=== PATIENT | male | born 1990 ===

== ENCOUNTER 2016-11-03 12:08 | Inpatient (IN) | payer MEDICAID ==
[2016-11-03 12:11] VITALS: BMI 38.4
--- NOTE | 2016-11-03 12:29 | ED PDOC ---
Arrival/HPI - General Chief Complaint: Medical Clearance Time Seen by Provider: 11/03/16 12:19 - History of Present Illness Narrative History of Present Illness (Text): 11/03/16 12:29 25yo male with suicidal ideations and worsening depression. Denies homicidal ideations. denies relieving or exacerbating factors. No other complaints. Sent from [facility] for admission to behavioral health floor. Past Medical History - Provider Review Nursing Documentation Reviewed: Yes - Pulmonary Hx Asthma: Yes - Psychiatric Hx Psychophysiologic Disorder: Yes Hx Depression: Yes Hx Substance Use: No - Anesthesia Hx Anesthesia: No Hx Anesthesia Reactions: No Family/Social History Family/Social History: Unknown Family HX Smoking Status: Never Smoked Hx Alcohol Use: No Hx Substance Use: No Allergies/Home Meds Allergies/Adverse Reactions: Allergies seafood Allergy (Uncoded 11/03/16 12:10) ANAPHYLAXIS Home Medications: Home Meds Medication Instructions Recorded Confirmed No Known Home Med 11/03/16 11/03/16 Physical Exam - Physical Exam Narrative Physical Exam (Text): 11/03/16 12:30 - Review of Systems Constitutional: Normal. absent: Fatigue, Weight Change, Fevers Eyes: Normal ENT: denies sore throat, denies tristhmus Respiratory: Normal. absent: SOB, Cough, Sputum Cardiovascular: absent: Chest Pain, Palpitations, Syncope Gastrointestinal: Normal. absent: Abdominal Pain, Diarrhea, Nausea, Vomiting Genitourinary: Normal. absent: Dysuria, Frequency, Hematuria Musculoskeletal: Normal. absent: Arthralgias, Back Pain, Neck Pain Skin: no rashes, no erythema Neurological: absent: Focal Weakness Endocrine: Normal Hemo/Lymphatic: Normal Psychiatric: suicidal ideations, depression. No homicidal ideations Physical exam Patient appears age appropriate in no distress, speaking full sentences without difficulty - Systems Exam Head: Present: Atraumatic, Normocephalic Pupils: Present: PERRL Extroacular Muscles: Present: EOMI Conjunctiva: Present: Normal Mouth: Present: Moist Mucous Membranes Neck: Present: Normal Range of Motion. No: MIDLINE TENDERNESS, Paraspinal Tenderness Respiratory/Chest: Present: Clear to Auscultation, Good Air Exchange. No: Respiratory Distress, Accessory Muscle Use, Tachypneic Cardiovascular: Present: Regular Rate and Rhythm, Normal S1, S2, Peripheal Pulses Present. No: Murmurs Abdomen: Present: Normal Bowel Sounds. No: Tenderness, Distention, Peritoneal Signs, Rebound, Guarding Back: Present: Normal Inspection. No: Midline Tenderness, Paraspinal Tenderness Upper Extremity: Present: Normal Inspection. No: Cyanosis, Edema Lower Extremity: Present: Normal Inspection. No: Edema Neurological: Present: GCS=15, Speech Normal, cranial nerves II through XII fully intact with no cerebellar abnormality, neurosensory fully intact. No focal neurological deficits. Skin: Present: Warm, Dry, Normal Color. No: Rashes Lymphatic: Present: OX3, NI, NC Psychiatric: Present: Alert, Oriented x 3, Normal Insight, Normal Concentration Disposition/Present on Arrival - Present on Arrival Any Indicators Present on Arrival: No History of DVT/PE: No History of Uncontrolled Diabetes: No Urinary Catheter: No History of Decub. Ulcer: No History Surgical Site Infection Following: None - Disposition Have Diagnosis and Disposition been Completed?: Yes Diagnosis: Suicidal ideation Disposition: HOSPITALIZED Disposition Time: 12:31 Patient Plan: Admission Condition: STABLE
[2016-11-03 14:33] VITALS: O2SAT 100
[2016-11-03] MEDS ORDERED: Alum-Mag Hydrox-Simethicone Susp (30 mL) PO PRN (16:00)
[2016-11-03] MEDS ORDERED: Magnesium Hydroxide Susp 30 ml UD PO PRN (16:00)
[2016-11-03] MEDS ORDERED: DiphenhydrAMINE 50 mg/ml Inj IM PRN (16:03)
[2016-11-04 09:29] VITALS: RESP 16; TEMP 98.7
--- NOTE | 2016-11-04 14:44 | CON ---
DATE: 11/04/2016 I saw the patient on the psychiatric floor. He tells me he was just in [facility] and looks forward to going to [place] w/ family when he can be discharged from here. . He tells me he had some suicidal thoughts and feeling depressed. Before he did anything bad and anything would happen, he came to the Emergency Room. He has not been taking his medications and he feels like he needs to get back on the medications again. He had first gone to [facility] and they sent him over here. He has a history of asthma, but no breathing issues; depression. SOCIAL HISTORY: He never smoked, no alcohol, no drugs. FAMILY HISTORY: He tells me his family has no medical history that he knows of. ALLERGIES: HE HAS AN ALLERGY TO SEAFOOD but not to medication. MEDICATIONS: He does not remember the medications he was taking, and he is not taking any medications now. REVIEW OF SYSTEMS: He has no acute vision changes or hearing changes, no sore throat, no headache, no dizziness, no chest pain or shortness of breath, no abdominal pain. He is urinating well. Legs are okay. Arms are okay. Skin is intact. He tells me no issues with his skin, no rashes. PHYSICAL EXAMINATION: VITAL SIGNS: He has a 98 temp, 64 pulse, 119/87 blood pressure (maybe a little borderline), 17 respiratory rate, 100% O2 sat on room air. HEENT: Head is atraumatic, normocephalic. Extraocular muscles are intact. Pupils equal, reactive to light and accommodation. Throat moist, no erythema. NECK: Supple, no JVD. HEART: Regular rate. LUNGS: Clear to auscultation. ABDOMEN: Soft, nontender, positive bowel sounds. No guarding, no rebound, no CVA tenderness. EXTREMITIES: Have no edema. NEUROLOGIC: Cranial nerves II-XII are grossly intact. He is alert and oriented x 3. He could smile. He could stick his tongue out midline. He could feel the tissue on both sides of the face the same way. He could can follow my finger in an H pattern with his vision in his eyes. He could put his arms over his head. He is grossly neurologically intact at this time. He is here for suicidal thoughts, depression, off his medications. He came feeling that he needs to be back on his medication before he does something poorly. Will check his blood pressure and make sure that stays down. No asthma symptoms at this time, but he has an asthma history. Will check his labs tomorrow. He did have a consult with psychiatry. He is on Ativan, Benadryl, Desyrel, Haldol, milk of magnesia, Maalox, Prozac, Tylenol and Vistaril. Will see how he does with his blood test. Labs are pending. Juancarlos Tinsley DO cc: [id number] TT: 11/04/2016 14:44:16 Confirmation # [id number] Dictation # [id number] mn MTDD
--- NOTE | 2016-11-04 15:03 | PCM.PSYCH ---
Initial Psychiatric Evaluation - Initial Psychiatric Evaluation Type of Admission: Voluntary Legal Status: Capacity (patient has capacity to sign consent for treatment) Chief Complaint (in patient's own words): "my mood was up and down, was feeling hopeless, but not feel better, my aunt invited me to leave with her in [place]" Patient's Reaction to Hospitalization: atient was transferred from the [facility] for psychiatric admission patient verbalized depressive symptoms, irritability, inability to function, difficulty to concentrate and stay focused. History of Present Illness and Precipitating Events: shortly patient is 25 years old male, self reported history of ADHD, dependent personality disorder, rule out borderline personality disorder, as well as self reported history of bipolar disorder, at least 5 hospitalizations in to the psychiatric inpatient unit mostly for disruptive behavior most recent was in February 2014 first was in 2007, patient has history of incarcerations most recent was from October 29 to June 2016 for violation of November but probation patient was transferred from [facility] for evaluation and stabilization of depressive symptoms irritability as well as medication initiation and titration. Patient was seen today at the morning time at the treatment team meeting with the medical students. Patient presented to be alert and oriented corporative well related to this television script writer, fare personal hygiene good ADLs. Patient reported that he was [facility] from [facility] in June 2016 and for past 3 months he is trying to adjust in society. 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 Patient at the same time was feeling hopeless and helpless, patient reported to feel irritable and angry, the same time denied any aggressive feelings. Patient reported being depressed hopeless patient denied thoughts of harming himself or others denied intent or plan. Patient denied hearing voices denied seeing things denied paranoid ideation patient does not appear to be psychotic Patient reported history of ADHD hyperactivity team as well as patient was attending special at class for disruptive behavior but not for low IQ. Patient still has difficulties to concentration difficulties to stay focused patient obviously has overproductive patient and difficult to to stay still. Patient denied using any drugs denied using alcohol denied smoking at the same time patient reported that he smoked weed couple weeks ago. patient has history of incarceration patient has flashbacks and nightmares about what was going on with other people in [facility], patient has flashbacks and nightmares and reliving of the situation most recent was in August when patient had vivid dreams and had nightmares. Past psychiatric history patient has multiple admissions into the psychiatric inpatient units first was in 2007 at the age of 16 patient overdose on 2 pills of Tylenol and was admitted into the psychiatric inpatient unit most recent was in February 2014 for disruptive behavior. Patient was officially diagnosed with attention deficit hyperactivity disorder was on Vyvanse was on arm Strattera also Concerta patient reported when she was on Vyvanse she was able to stay focused as well as concentrate better. patient has history of multiple arrests all together patient served 6.5 years in [facility] most recent was from October 2014 to June 2016 for violation of parole patient also was arrested from March 2009 to 2012 for robbery. pt is not on probation now. pt was on multiple psychotropic meds including wellbutrin and risperdal, pt gain a lot of weight on Risperdal and dos not want to be on it. patient was educated about Wellbutrin, as well as Geodon. Patient gave permission to speak to his aunt who invited patient to stay with her in [place] [phone] her name is Jorge, Jorge said that patient was doing very well she was making good choices, at the same time patient was not using drugs and confirmed the fact that patient will be living with her. This television script writer educated on and about treatment plan. Aunt verbalized understanding. Patient wanted to be discharged today, but aunt wants pt to be on medications as well as f/u appointment at [place]. pt was in agreement with that plan. Vital Signs Temp Pulse Resp BP Pulse Ox 11/04/16 07:00 98.7 F 62 16 161/90 H 11/03/16 14:10 64 17 119/87 100 11/03/16 12:24 98.0 F 59 L 16 117/88 98 Current Medications: Active Medications Generic Name Dose Route Start Last Admin Trade Name Freq PRN Reason Stop Dose Admin Acetaminophen 650 mg 11/03/16 16:00 Tylenol 325mg Tab PO Q4 PRN Pain, Mild (1-3) Al Hydrox/Mg Hydrox/Simethicone 30 ml 11/03/16 16:00 Maalox Plus 30 Ml PO DAILY PRN Upset Stomach Bupropion HCl 100 mg 11/04/16 16:00 Wellbutrin PO BID [place] Diphenhydramine HCl 50 mg 11/03/16 16:03 Benadryl PO Q6H PRN Agitation Diphenhydramine HCl 50 mg 11/03/16 16:03 Benadryl IM Q6H PRN Agitation Haloperidol 5 mg 11/03/16 16:03 Haldol PO Q6H PRN Agitation Protocol Haloperidol Lactate 5 mg 11/03/16 16:03 Haldol IM Q6H PRN Agitation Protocol Hydroxyzine Pamoate 50 mg 11/03/16 16:01 Vistaril PO Q8 PRN Anxiety Protocol Lorazepam 2 mg 11/03/16 16:03 Ativan PO Q6H PRN Agitation Protocol Lorazepam 2 mg 11/03/16 16:03 Ativan IM Q6H PRN Anxiety Protocol Magnesium Hydroxide 30 ml 11/03/16 16:00 Milk Of Magnesia PO DAILY PRN Constipation Trazodone HCl 50 mg 11/03/16 22:00 11/03/16 23:06 Desyrel PO 50 mg HS [place] Administration Ziprasidone 20 mg 11/04/16 16:00 Geodon Cap PO BID [place] Protocol Past Psychiatric History - Past Psychiatric History Previous Treatment History: Inpatient Prior Professional Help: See HPI Prior Psychiatric Treatment: see HPI At what hospital: see HPI Duration: see HPI Nature of Treatment: see HPI Explanation of prior treatment: see HPI History of Abuse: none History of ETOH/Drug Use: denied History of Family Illness: denied Pertinent Medical Hx (Current Medical&Sleep Prob, Allergies): Allergies Allergy/AdvReac Type Severity Reaction Status Date / Time Shellfish Allergy SHORTNESS Uncoded 11/03/16 15:59 OF BREATH No Known Home Med 11/03/16 Review of Systems - Review of Systems Systems not reviewed;Unavailable: Acuity of Condition - EENT Eyes: As Per HPI Ears: As Per HPI Nose/Mouth/Throat: As Per HPI - Cardiovascular Cardiovascular: As Per HPI - Respiratory Respiratory: As Per HPI - Gastrointestinal Gastrointestinal: As Per HPI - Genitourinary Genitourinary: As Per HPI - Reproductive: Male Reproductive:Male: As Per HPI - Musculoskeletal Musculoskeletal: As Par HPI - Integumentary Integumentary: As Per HPI - Neurological Neurological: As Per HPI - Psychiatric Psychiatric: As Per HPI - Endocrine Endocrine: As Per HPI - Hematologic/Lymphatic Hematologic: As Per HPI Mental Status Examination - Personal Presentation Personal Presentation: Looks stated age - Affect Affect: Constricted - Motor Activity Motor Activity: Calm - Reliability in Providing Information Reliability in Providing Information: Fair - Speech Speech: Organized, Other (at the same time has difficulties to concentrate) - Mood Mood: Depressed - Formal Thought Process Formal Thought Process: No Impairment - Obsessions/Compulsions Obsessions: None Compulsions: None - Cognitive Functions Orientation: Person, Place, Situation, Time Sensorium: Alert Attention/Concentration: Easily distracted Abstract Thinking: Parker Estimate of Intelligence: Average - Risk Risk: Self-mutilation, Diminished functioning - Strength & Assets Inventory Strength & Assets Inventory: Intelligence, Family support, Education, Skills, Cooperative - Limitations Limitations: Other (mental illness, h/o noncompliance with meds) DSM 5 DX - DSM 5 DSM 5 Diagnosis: self reported history of bipolar disorder Self reported history of ADHD rule out PTSD rule out adjustment disorder with depressed and anxious mood Cannabis abuse rule out antisocial personality Rule out dependent personality patient (self reported) - Recommended/Plan of Treatment Treatment Recommendations and Plan of Treatment: milieu, structure, supportive therapy Geodon 20 mg twice a day for mood stabilization Wellbutrin 100 mg twice a day for major depressive disorder and ADHD Trazodone for insomnia 50 mg Collaterals from aunt appreciated Patient submitted 48 hour notice wants to be discharged tomorrow Patient contact is going to be him up tomorrow We'll follow-up on advised accordingly Medical evaluation break out worker evaluation Projected ELOS: 5days Prognosis: fair Discharge Plan and Discharge Criteria: Pt will be not depressed or manic, will be more hopeful, will be not psychotic or anxious, will be tolerating medications well, will not have major side effects, will be able to function, will not pose threat to self or others. - Smoking Cessation Smoking Cessation Initiated: Yes Reason for not providing: pt smokes "once in a [place]" does not want to be on nicotine patch
[2016-11-04 18:30] VITALS: BP 147/88; PULSE 63
--- NOTE | 2016-11-05 16:21 | PCM.PYCHDC ---
Mental Status Examination - Mental Status Examination Orientation: Person, Place, Situation, Time Memory: Intact Mood: Neutral Affect: Constricted Speech: Appropriate Attention: WNL Concentration: WNL Association: WNL Fund of Knowledge: WNL Formal Thought Process: No Impairment Description of patient's judgement and insight: Pt has improved insight into mental and medical illness, pt was compliant with medications and unit rules and regulations, pt was going to groups, was calm, cooperative, socially appropriate, no behavioral incidents, no agitation, no aggression. Psychotic Thoughts and Behaviors: Pt denied v/a/t hallucinations, denied paranoid ideations, pt does not appear to be psychotic, and thought process is goal directed. Suicidal Ideation: No Current Homicidal Ideation?: No Plan: pt adamantly denied thoughts of harming self or others denied intent or plan. Discharge Summary - Discharge Note Reason for Hospitalization: [facility] patient verbalized depressive symptoms, irritability, inability to function, difficulty to concentrate and stay focused. Psychiatric History (includes Medical, Family, Personal Hx): see HPI Laboratory Data: Vital Signs Temp Pulse Resp BP Pulse Ox 11/04/16 16:30 63 147/88 11/04/16 07:00 98.7 F 62 16 161/90 H 11/03/16 14:10 64 17 119/87 100 11/03/16 12:24 98.0 F 59 L 16 117/88 98 Consultations:: List each consultation separately and include: 1. Reason for request. 2. Findings. 3. Follow-up Consultations: med consult appreciated Summary of Hospital Course include:: 1. Description of specific treatment plan utilized for patients during their course of treatmen. 2. Summarize the time- course for resolution of acute symptoms and/or regressed behaviors. 3. Describe issues identified and worked on during hospitalization. 4. Describe medication utilized. 5. Describe medical problems identified and treated. 6. Reassessment of suicide risk Summary of Hospital Course: shortly patient is 25 years old male, self reported history of ADHD, dependent personality disorder, rule out borderline personality disorder, as well as self reported history of bipolar disorder, at least 5 hospitalizations in to the psychiatric inpatient unit mostly for disruptive behavior most recent was in February 2014 first was in 2007, patient has history of incarcerations most recent was from October 29 to June 2016 for violation of November but probation patient was transferred from [facility] for evaluation and stabilization of depressive symptoms irritability as well as medication initiation and titration. Patient was seen at the morning time at the treatment team meeting with the medical students. Patient presented to be alert and oriented corporative well related to this service writer, karlenee personal hygiene good ADLs. Patient reported that he was [facility] from [facility] in June 2016 and for past 3 months he is trying to adjust in society. 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 Patient at the same time was feeling hopeless and helpless, patient reported to feel irritable and angry, the same time denied any aggressive feelings. Patient reported being depressed hopeless patient denied thoughts of harming himself or others denied intent or plan. Patient denied hearing voices denied seeing things denied paranoid ideation patient does not appear to be psychotic Patient reported history of ADHD hyperactivity team as well as patient was attending special at class for disruptive behavior but not for low IQ. Patient still has difficulties to concentration difficulties to stay focused patient obviously has overproductive patient and difficult to to stay still. Patient denied using any drugs denied using alcohol denied smoking at the same time patient reported that he smoked weed couple weeks ago. patient has history of incarceration patient has flashbacks and nightmares about what was going on with other people in [facility], patient has flashbacks and nightmares and reliving of the situation most recent was in August when patient had vivid dreams and had nightmares. Past psychiatric history patient has multiple admissions into the psychiatric inpatient units first was in 2007 at the age of 16 patient overdose on 2 pills of Tylenol and was admitted into the psychiatric inpatient unit most recent was in February 2014 for disruptive behavior. Patient was officially diagnosed with attention deficit hyperactivity disorder was on Vyvanse was on arm Strattera also Concerta patient reported when she was on Vyvanse she was able to stay focused as well as concentrate better. patient has history of multiple arrests all together patient served 6.5 years in longterm most recent was from October 2014 to June 2016 for violation of parole patient also was arrested from March 2009 to 2012 for robbery. pt is not on probation now. pt was on multiple psychotropic meds including wellbutrin and risperdal, pt gain a lot of weight on Risperdal and dos not want to be on it. patient was educated about Wellbutrin, as well as Kg. Patient gave permission to speak to his aunt who invited patient to stay with her in [place] [phone] her name is Nohemi, Nohemi said that patient was doing very well she was making good choices, at the same time patient was not using drugs and confirmed the fact that patient will be living with her. This service writer educated on and about treatment plan. Aunt verbalized understanding. Patient wanted to be discharged today, but aunt wants pt to be on medications as well as f/u appointment at [place]. pt was in agreement with that plan. Vital Signs Temp Pulse Resp BP Pulse Ox 11/04/16 07:00 98.7 F 62 16 161/90 H 11/03/16 14:10 64 17 119/87 100 11/03/16 12:24 98.0 F 59 L 16 117/88 98 evening RN called this service writer and let her know that pt wants to be discharged, pt said his relative was hit by a car. pt denied thoughts of harming self or others, wants to be with his family. pt singed AMA, pt had capacity to do so. pt was observed for 24hrs in the unit, this service writer spoke to pt's aunt pt was doing well, aunt willing to accept pt to her house. Pt will move to [place]. pt was picked up by his brother. pt will arrange his d/c plan himself. - Diagnosis (1) Bipolar 1 disorder Status: Acute (2) Adjustment disorder of adolescence Status: Acute - Final Diagnosis (DSM 5) Condition upon Discharge: GOOD Disposition: AGAINST MEDICAL ADVICE Follow-up Treatment Plan: pt was d/c [facility] - Smoking Cessation Smoking Cessation Medication prescribed: Yes Reason for not providing: pt smokes "once in a while - Antipsychotic Medications Pt discharged on 2 or more routine antipsychotic medications: No
== END 2016-11-04 21:25 | disposition left against medical advice (07) | DRG 430 ==
LOC: ED 12:08 → ERH 12:32 → PSYC 15:52
PROVIDERS: ADMIT Psychiatry & Neurology Psychiatry; ATTEND Psychiatry & Neurology Psychiatry
DX: F31.9 Bipolar disorder, unspecified (principal); F60.7 Dependent personality disorder; F12.10 Cannabis abuse, uncomplicated; F90.9 Attention-deficit hyperactivity disorder, unspecified type; Z91.013 Allergy to seafood

== ENCOUNTER 2017-03-21 10:20 | Emergency (ER) | payer MEDICAID ==
[2017-03-21 10:20] VITALS: BMI 38.4
[2017-03-21 10:25] VITALS: TEMP 98.4
--- NOTE | 2017-03-21 10:59 | ED PDOC ---
Arrival/HPI - General Historian: Patient - History of Present Illness Time/Duration: 1-3 hours Symptom Onset: Sudden Symptom Course: Unchanged Quality: Aching, Stabbing Severity Level: 8 - General Chief Complaint: Trauma Time Seen by Provider: 03/21/17 10:27 - History of Present Illness Narrative History of Present Illness (Text): 03/21/17 10:48 26-year-old male presents today with left shoulder pain status post fall. Patient states approximately 3 hours ago he was running after his niece and he fell landing on the left arm and shoulder. Patient complaining of pain to the humerus and left shoulder. Patient states he is able to move the shoulder slightly but is unable to raise the shoulder above his head. No medications have been taken for pain at home. He denies numbness weakness or tingling in the extremity. Denies chest pain or shortness of breath. Denies head injury. Denies dizziness or weakness. Denies wrist or hand pain. No neck or back pain. no other complaints (Sheila Guzman) Past Medical History - Provider Review Nursing Documentation Reviewed: Yes - Travel History Have you recently traveled outside [place] w/in the past 3 mons?: No - Tetanus Immunization Tetanus Immunization: Unknown - Cardiac Hx Cardiac Disorders: No Hx Hypertension: No - Pulmonary Hx Asthma: Yes (ON NO MEDS) - Neurological HX Cerebrovascular Accident: No Hx Seizures: No - Hematological/Oncological Hx Cancer: No - Genitourinary/Gynecological Hx Sexually Transmitted Diseases: No - Psychiatric Hx Psychophysiologic Disorder: No Hx Substance Use: No - Anesthesia Hx Anesthesia: No Hx Anesthesia Reactions: No - Suicidal Assessment Feels Threatened In Home Enviroment: No Family/Social History - Physician Review Nursing Documentation Reviewed: Yes Family/Social History: Unknown Family HX Smoking Status: Never Smoked Hx Alcohol Use: No Hx Substance Use: No Hx Substance Use Treatment: No Allergies/Home Meds Allergies/Adverse Reactions: Allergies shellfish Allergy (Mild, Uncoded 11/03/16 11:29) Shellfish Allergy (Uncoded 11/03/16 15:59) SHORTNESS OF BREATH Review of Systems - Review of Systems Constitutional: absent: Fatigue, Fevers Respiratory: absent: SOB, Cough Cardiovascular: absent: Chest Pain, Palpitations Gastrointestinal: absent: Abdominal Pain, Nausea, Vomiting Musculoskeletal: Arthralgias (left shoulder pain). absent: Back Pain, Neck Pain Skin: absent: Rash, Pruritis Neurological: absent: Headache, Dizziness, Disequilibrium Psychiatric: absent: Anxiety, Depression Physical Exam Vital Signs Reviewed: Yes Temperature: Afebrile Blood Pressure: Normal Pulse: Regular Respiratory Rate: Normal Appearance: Positive for: Well-Appearing, Non-Toxic, Comfortable Pain Distress: None Mental Status: Positive for: Alert and Oriented X 3 - Systems Exam Head: Present: Atraumatic, Normocephalic. No: Tenderness, Swelling Pupils: Present: PERRL Extroacular Muscles: Present: EOMI Mouth: Present: Moist Mucous Membranes Neck: Present: Normal Range of Motion, Trachea Midline. No: MIDLINE TENDERNESS , Paraspinal Tenderness Respiratory/Chest: Present: Clear to Auscultation, Good Air Exchange. No: Respiratory Distress, Accessory Muscle Use Cardiovascular: Present: Regular Rate and Rhythm, Normal S1, S2. No: Murmurs Abdomen: No: Tenderness Back: Present: Normal Inspection. No: Midline Tenderness, Paraspinal Tenderness Upper Extremity: Present: NORMAL PULSES, Tenderness (Left shoulder; + ttp over lateral and anterior aspect of shoulder; decreased abduction, + ttp over proximal humerus; no edema, no erythema; no ecchymosis; no abrasions. no elbow or hand tenderness. minimal wrist tenderness; full rom of wrist. no snuff box tenderness. ), Neurovascularly Intact, Capillary Refill < 2s. No: Normal ROM, Swelling, Erythema, Deformity Lower Extremity: Present: Normal Inspection, Normal ROM Neurological: Present: GCS=15, Speech Normal Skin: Present: Warm, Dry, Normal Color. No: Rashes Psychiatric: Present: Alert, Oriented x 3 Vital Signs Temp Pulse Resp BP Pulse Ox 03/21/17 13:06 86 18 128/68 96 03/21/17 10:25 98.4 F 92 H 16 133/77 95 Medical Decision Making ED Course and Treatment: 03/21/17 12:14 I was available for consultation during PA evaluation. The chart was reviewed by me, and I agree with disposition. The documented history was done by the physician program director [employer]. The documented physical exam was done by the physician program director [employer]. The documented procedures were done by the physician program director [employer]. (Tate Steiner) 03/21/17 11:29 Patient nontoxic well-appearing in no distress with stable vital signs X-rays of the left shoulder: no fracture as read by the radiologist xrays of the left upper arm: no fracture as read by the radiologist xray of the left wrist; no fracture as read by the radiologist toradol IM pt given sling. i advised the patient that although the xrays show no fracture; there is still a possibility for ligamentous or tendon injury the patient must see the orthopedist for further evaluation. I discussed all results with patient advised to followup with the orthopedist for the next 2 days. Return if symptoms worsen persist or new symptoms develop Patient verbalizes understanding of discharge instructions and need for immediate followup. Impression: shoulder pain, wrist pain Motrin every 6 hours as needed for pain flexeril; 1 tablet every 8 hours as needed for muscle spams Rest, ice, compression, elevation Followup with the orthopedist within the next 2 days Followup with primary care physician within the next 2 days Return if any other concerning symptoms develop (Sheila Guzman) - RAD Interpretation Radiology Orders: 03/21/17 10:36 HUMERUS LEFT [RAD] Stat SHOULDER LEFT [RAD] Stat 03/21/17 12:50 WRIST, LEFT 3 VIEWS [RAD] Stat - Medication Orders Current Medication Orders: Discontinued Medications Ketorolac Tromethamine (Toradol) 60 mg IM STAT STA Stop: 03/21/17 10:37 Last Admin: 03/21/17 10:53 Dose: 60 mg Disposition/Present on Arrival - Present on Arrival Any Indicators Present on Arrival: No History of DVT/PE: No History of Uncontrolled Diabetes: No Urinary Catheter: No History of Decub. Ulcer: No History Surgical Site Infection Following: None - Disposition Have Diagnosis and Disposition been Completed?: Yes Disposition Time: 13:40 Patient Plan: Discharge - Disposition Diagnosis: Shoulder pain Disposition: HOME/ ROUTINE Condition: GOOD Discharge Instructions (ExitCare): Shoulder Pain (ED) Additional Instructions: Motrin every 6 hours as needed for pain flexeril; 1 tablet every 8 hours as needed for muscle spams Rest, ice, compression, elevation Followup with the orthopedist within the next 2 days Followup with primary care physician within the next 2 days Return if any other concerning symptoms develop Prescriptions: Cyclobenzaprine [Cyclobenzaprine HCl] 10 mg PO Q8 #10 tab Ibuprofen [Motrin] 600 mg PO Q6H PRN #20 tab PRN Reason: pain/fever reduction Referrals: Era Nunez MD [Staff Provider] - Follow up with primary [facility] [Outside] - Follow up with primary Forms: [employer] ([place])
--- NOTE | 2017-03-21 12:31 | RAD ---
PROCEDURE: Radiographs of the left humerus. HISTORY: fall, upper arm pain COMPARISON: None. FINDINGS: BONES: Normal. No fracture or focal lesion. SOFT TISSUES: Normal. OTHER FINDINGS: None. IMPRESSION: Normal radiographs of left humerus.
--- NOTE | 2017-03-21 12:32 | RAD ---
PROCEDURE: Radiographs of the Left Shoulder HISTORY: fall, shoulder pain COMPARISON: No prior. FINDINGS: BONES: Normal. No fracture. JOINTS: Normal. Glenohumeral and acromioclavicular joints preserved. No osteoarthritis. SOFT TISSUES: Normal. OTHER FINDINGS: None. IMPRESSION: Normal radiographs of the left shoulder.
[2017-03-21 13:06] VITALS: BP 128/68; PULSE 86; RESP 18; O2SAT 96
--- NOTE | 2017-03-21 13:23 | RAD ---
PROCEDURE: Left Wrist Radiographs. HISTORY: wrist pain COMPARISON: None. FINDINGS: BONES: Normal. No fracture. JOINTS: Normal. No dislocation. SOFT TISSUES: Normal. OTHER FINDINGS: None. IMPRESSION: Normal left wrist radiographs.
== END 2017-03-21 13:57 | disposition home or self-care (01) ==
LOC: ED 10:20
DX: M25.512 Pain in left shoulder (principal)
CPT/HCPCS: 29240; 73030; 73060; 73110; 96372; 99285; J1885